=== PATIENT | female | born 1975 | race Caucasian/White ===

== ENCOUNTER 2017-12-31 14:16 | Emergency (ER) | payer OTHER ==
[~2017-12-31] VITALS: Ht 162.6 cm; Wt 80.7 kg
[2017-12-31] MEDS ORDERED: MOBIC15 MG PO (14:33)
[2017-12-31] MEDS ORDERED: FLEXERIL PO (14:33)
[2017-12-31] MEDS ORDERED: ZOFRAN ODT4 MG DISSOLVE (14:33)
[2017-12-31 14:43] LABS: URINE BILIRUBIN NEGATIVE (Negative); URINE BLOOD 3+ (Negative); URINE CLARITY SL CLOUDY; URINE COLOR YELLOW; URINE GLUCOSE-RANDOM* NEGATIVE (Negative); URINE KETONES NEGATIVE (Negative); URINE NITRITE-REFLEX NEGATIVE (Negative); URINE PROTEIN (DIPSTICK) NEGATIVE (Negative); URINE SPECIFIC GRAVITY <= 1.005 (1.005-1.035); URINE UROBILINOGEN 0.2 E.U./dl (0.2-1.0)
[2017-12-31 14:44] LABS: URINE LEUKOCYTES-REFLEX TRACE (Negative)
[2017-12-31 14:52] LABS: BACTERIA-REFLEX 1-9 Few /HPF (None Seen); CASTS None Seen /LPF (None Seen); CRYSTALS None Seen /LPF (None Seen); SQUAMOUS >10 Many /LPF (0-3); URINE RBC None Seen /HPF (0-2); URINE WBC-REFLEX 0-5 Rare /HPF (0-5)
[2017-12-31 14:59] LABS: AMP/METHAMP Negative (Negative); BARBITURATES Negative (Negative); BENZODIAZEPINES POSITIVE (Negative); COCAINE Negative (Negative); METHADONE Negative (Negative); OPIATES Negative (Negative); PCP Negative (Negative)
[2017-12-31 15:09] LABS: ABSOLUTE NEUTROPHILS 4.6 thou/uL (1.4-8.2); BASOPHILS 0.4 % (0.0-2.0); EOSINOPHILS 1.5 % (0.0-3.0); HEMATOCRIT 39.9 % (37.0-47.0); HEMOGLOBIN 13.6 gm/dL (12.0-15.0); LYMPHOCYTES 31.2 % (24.0-44.0); MCV 88.3 fL (80.0-100.0); MONOCYTES 6.4 % (1.0-8.0); PLATELET COUNT 227 thou/uL (150-400); POLYS 60.5 % (36.0-66.0); RBC 4.52 mil/uL (4.20-5.00); RDW 13.8 % (10.5-14.5); WBC 7.6 thou/uL (4.0-11.0)
[2017-12-31 15:16] LABS: CALCIUM 8.7 mg/dL (8.5-10.1); CREATININE 0.8 mg/dL (0.6-1.0); POTASSIUM 3.9 mmol/L (3.5-5.1)
[2017-12-31] MEDS ORDERED: NORCO 5-325 TA1 EACH PO (17:29)
[2017-12-31] MEDS ORDERED: SENNA-DOCUSATE1 EACH PO (17:29)
[2017-12-31 18:15] VITALS: BP 123/88
== END 2017-12-31 18:15 | disposition home or self-care (01) ==
LOC: ER 14:16
PROVIDERS: Emergency Medicine
DX: M54.5 Low back pain (principal); G89.29 Other chronic pain; R31.9 Hematuria, unspecified; Z87.442 Personal history of urinary calculi; Z88.1 Allergy status to other antibiotic agents

== ENCOUNTER 2018-01-28 11:52 | Emergency (ER) | payer OTHER ==
[~2018-01-28] VITALS: Ht 162.6 cm; Wt 80.7 kg
[~2018-01-28 11:52] MED LIST: FLEXERIL PO; MOBIC15 MG PO; NORCO 5-325 TA1 EACH PO; SENNA-DOCUSATE1 EACH PO; ZOFRAN ODT4 MG DISSOLVE
[2018-01-28] MEDS ORDERED: PHENTERMINE H37.5 M1 PO (12:03)
[2018-01-28] MEDS ORDERED: OXYCONTIN10 M1 PO (12:04)
[2018-01-28 12:06] LABS: URINE BILIRUBIN NEGATIVE (Negative); URINE BLOOD 3+ (Negative); URINE CLARITY CLOUDY; URINE COLOR YELLOW; URINE GLUCOSE-RANDOM* NEGATIVE (Negative); URINE KETONES TRACE (Negative); URINE LEUKOCYTES-REFLEX TRACE (Negative); URINE NITRITE-REFLEX NEGATIVE (Negative); URINE PROTEIN (DIPSTICK) 1+ (Negative); URINE SPECIFIC GRAVITY 1.025 (1.005-1.035)
[2018-01-28 12:12] LABS: SQUAMOUS >10 Many /LPF (0-3)
[2018-01-28 12:13] LABS: BACTERIA-REFLEX 1-9 Few /HPF (None Seen); CASTS None Seen /LPF (None Seen); CRYSTALS None Seen /LPF (None Seen); URINE RBC >20 Many /HPF (0-2); URINE WBC-REFLEX 6-15 Few /HPF (0-5)
[2018-01-28] MEDS ORDERED: FLEXERIL PO (12:30)
[2018-01-28] MEDS ORDERED: PHENAZOPYRIDIN200 M2 PO (12:30)
[2018-01-28] MEDS ORDERED: MOBIC15 MG PO (12:58)
[2018-01-28 13:07] VITALS: BP 131/84
== END 2018-01-28 13:08 | disposition home or self-care (01) ==
LOC: ER 11:52
PROVIDERS: Physician Assistant
DX: R30.0 Dysuria (principal); M54.5 Low back pain; G89.29 Other chronic pain; Z88.1 Allergy status to other antibiotic agents; Z87.442 Personal history of urinary calculi